=== PATIENT | male | born 1990 ===

== ENCOUNTER 2020-09-16 16:26 | Emergency (ER) | payer SELFPAY ==
[~2020-09-16] VITALS: Ht 165.1 cm; Wt 92.9 kg
== END 2020-09-16 17:58 | disposition home or self-care (01) ==
LOC: ER 16:26
DX: S30.1XXA Contusion of abdominal wall, initial encounter (principal); S50.01XA Contusion of right elbow, initial encounter; W01.0XXA Fall on same level from slipping, tripping and stumbling without subsequent striking against object, initial encounter; Y93.89 Activity, other specified
CPT/HCPCS: 71046; 72100; 96372; 99283-25; J1885